=== PATIENT | female | born 1995 | race Caucasian/White ===

== ENCOUNTER 2018-11-26 19:23 | Emergency (ER) | payer MEDICAID ==
[~2018-11-26] VITALS: Ht 157.5 cm; Wt 65.8 kg
[2018-11-26 19:32] VITALS: BP_SYST 120
[2018-11-26] MEDS ORDERED: HYDROcodone/ACETAMIN 5-325 MG TAB (NORCO/ VICODIN) PO ONE (20:30)
[2018-11-26 20:47] VITALS: BP_SYST 125
== END 2018-11-26 20:47 | disposition home or self-care (01) ==
LOC: SED 19:23
DX: S86.911A Strain of unspecified muscle(s) and tendon(s) at lower leg level, right leg, initial encounter (principal); R03.0 Elevated blood-pressure reading, without diagnosis of hypertension; X50.9XXA Other and unspecified overexertion or strenuous movements or postures, initial encounter; Y93.89 Activity, other specified; Y92.69 Other specified industrial and construction area as the place of occurrence of the external cause; Y99.8 Other external cause status
CPT/HCPCS: 73552; 73564; 99283